=== PATIENT | female | born 1985 | race African-American/Black ===

== ENCOUNTER 2023-04-27 00:42 | Emergency (ER) | payer SELFPAY ==
[2023-04-27] MEDS ORDERED: Lidocaine Viscous Sol 2% 15 ml UD Cup ONE (01:01)
[2023-04-27] MEDS ORDERED: Pantoprazole 40 MG VIAL ONE (01:01)
[2023-04-27] MEDS ORDERED: Mag-Al Plus 1200 MG/1200 MG/120 MG/30 ML UDCUP ONE (01:01)
[2023-04-27 01:12] LABS: #Basophils 0.1 thou/uL (0.0-0.2); #Eosinphils 0.4 thou/uL (0.0-0.7); #Lymphocytes 3.4 thou/uL (1.20-3.40); #Monocytes 0.6 thou/uL (0.11-0.59); #Neutrophils 4.6 thou/uL (1.40-6.50); %Basophils 0.7 % (0.0-1.0); %Lymphocytes 37.4 % (21.0-51.0); %Monocytes 6.8 % (0.0-10.0); %Neutrophils 51.2 % (42.0-75.0); Hematocrit 34.9 % (36.0-47.0); Hemoglobin 11.1 g/dL (12.0-16.0); Mean Corpuscular HGB CONC 31.7 g/dL (32.0-36.0); Mean Corpuscular Hemoglobin 29.5 pg (27.0-31.0); Mean Platelet Volume 5.6 fL (7.4-10.4); Platelet Count 314 10x3/uL (130-400); RBC Distribution Width 14.1 % (11.5-14.5); Red Blood Cell (RBC) Count 3.75 mill/uL (4.20-5.40); White Blood Cell (WBC) Count 9.1 10x3/uL (4.8-10.8)
[2023-04-27 01:23] LABS: Bilirubin Negative (Negative); Blood, Urine Trace (Negative); Clarity Clear (Clear); Glucose, Urine (Dipstick) Negative (Negative); Ketone, Urine Negative (Negative); Leukocyte Negative (Negative); Nitrite Negative (Negative); Pregu Control Background? CLEAR/WHITE (CLR/WHITE); Pregu Control Bar Appear? YES (CONTROL BAR); Protein, Urine (Dipstick) Negative (Neg-Trace); Specific Gravity 1.022 (1.002-1.036); Specific Gravity, Urine 1.025 (1.005-1.030); Urobilinogen 0.2 mg/dL (Less than 2)
[2023-04-27 01:25] LABS: Pregnancy Test - Urine (BHCG) Negative (Negative)
[2023-04-27 01:27] LABS: Bacteria/HPF None Seen HPF (None Seen); CAUTI Indications for Culture Pelvic or flank pain; RBC/HPF None Seen HPF (0-3); Squamous Epithelial 0-3 HPF (0-3); WBC/HPF None Seen HPF (0-3)
[2023-04-27 01:28] LABS: Urine Culture Reflex No No
[2023-04-27 01:32] LABS: ALT (SGPT) 15 U/L (8-55); AST (SGOT) 17 U/L (5-34); Albumin 3.9 g/dL (3.5-5.0); Alkaline Phosphatase 126 U/L (40-110); Anion Gap 14 mmol/L (10-20); BUN (Urea Nitrogen) 11 mg/dL (7.0-18.7); Bilirubin, Total 0.2 mg/dL (0.2-1.2); Calc. Creatinine Clearance 0 mL/min (70-130); Calcium 9.3 mg/dL (7.8-10.44); Carbon Dioxide 22 mmol/L (22-29); Chloride 106 mmol/L (98-107); Estimated GFR 75; Globulin 3.6 g/dL (2.4-3.5); Glucose 119 mg/dL (70-105); Lipase 60 U/L (8-78); Protein, Total 7.5 g/dL (6.0-8.3); Sodium 138 mmol/L (136-145); Troponin I Less than 0.010 ng/mL (< 0.028)
[2023-04-27] MEDS ORDERED: Ondansetron PF 4 MG/2 ML Vial ONE (01:35)
[2023-04-27] MEDS ORDERED: Morphine 4 MG/ML VIAL ONE (02:10)
[2023-04-27] MEDS ORDERED: Iopamidol 370 76% 100 ML VIAL ONE (09:00)
== END 2023-04-27 04:00 | disposition home or self-care (01) ==
LOC: NAV ERS 00:42
DX: K29.70 Gastritis, unspecified, without bleeding (principal); R11.2 Nausea with vomiting, unspecified
CPT/HCPCS: 74177; 80053; 81001; 81025; 83690; 84484; 85025; 93005; 96374; 96375; C9113; J2270; J2405; Q9967

== ENCOUNTER 2024-01-04 12:07 | Outpatient (CLI) | payer BC | END 2024-01-04 12:08 | disposition home or self-care (01) | LOC: NAV RAD 12:07 | PROVIDERS: ATTEND Family Medicine | DX: R07.89 Other chest pain (principal); I51.7 Cardiomegaly | CPT/HCPCS: 71046 ==

== ENCOUNTER 2024-01-12 21:27 | Emergency (ER) | payer BC ==
[2024-01-12] MEDS ORDERED: Ibuprofen 200 MG TAB ONE (22:23)
== END 2024-01-12 22:39 | disposition home or self-care (01) ==
LOC: NAV ERS 21:27
DX: G89.29 Other chronic pain (principal); M25.562 Pain in left knee
CPT/HCPCS: 99283

== ENCOUNTER 2024-10-29 11:09 | Emergency (ER) | payer BC, SELFPAY ==
[2024-10-29] MEDS ORDERED: Acetaminophen 325 MG TAB ONE (12:10)
[2024-10-29] MEDS ORDERED: Bacitracin 1 PK ONE (12:14)
[2024-10-29] MEDS ORDERED: Sulfameth/Trimethoprim DS 800-160mg TAB ONE (12:14)
== END 2024-10-29 12:22 | disposition home or self-care (01) ==
LOC: NAV ERS 11:09
DX: L03.012 Cellulitis of left finger (principal)
CPT/HCPCS: 26010

== ENCOUNTER 2025-08-15 14:52 | Emergency (ER) | payer OTHER, SELFPAY ==
[2025-08-15] MEDS ORDERED: Acetaminophen 325 MG TAB ONE (16:13)
== END 2025-08-15 17:14 | disposition home or self-care (01) ==
LOC: NAV ERS 14:52
DX: S93.402A Sprain of unspecified ligament of left ankle, initial encounter (principal); X50.1XXA Overexertion from prolonged static or awkward postures, initial encounter
CPT/HCPCS: 99283